=== PATIENT | female | born 1975 | race Two or more races ===

== ENCOUNTER 2024-07-27 13:22 | Emergency (ER) | payer MEDICAID, SELFPAY ==
[2024-07-27 13:23] VITALS: BMI 29.2
--- NOTE | 2024-07-27 13:37 | XR_ITS ---
Examination: PA lateral chest 2 views TECHNIQUE: Upright PA lateral chest 2 views Exam date and time: July 27, 2024 1500 hours Comparison August 29, 2023 INDICATIONS: Coughing fever nausea beginning 2 days ago. FINDINGS: Normal heart size The lungs are clear. The osseous structures are intact IMPRESSION: No active disease
--- NOTE | 2024-07-27 13:38 | PD.EDRME ---
Rapid Medical Screening Exam RME Arrival date/time: 07/27/24 13:22 48-year-old female with no known medical history presents to the emergency room with a chief complaint of abdominal pain, fever, body aches, sore throat x 2 days I have greeted and performed a focused initial assessment of this patient. A comprehensive ED assessment and evaluation of the patient, analysis of all test results, and completion of the medical decision making process will be conducted by additional ED providers. Chief Complaint: Abdominal Pain Vital signs reviewed by provider: Yes
[2024-07-27 13:39] VITALS: BP 118/67; PULSE 120; RESP 20; TEMP 39.5; O2SAT 95
[2024-07-27 14:01] LABS: Lactate (Lactic Acid) 1.9 mMol/L (0.4-2.0)
[2024-07-27 14:06] LABS: Basophils % (Auto) 0 % (0-2.5); Eosinophils % (Auto) 0 % (0-10); Hematocrit 35.5 % (36.0-46.0); Hemoglobin 11.6 g/dL (12.0-16.0); Immature Granulocytes % (Auto) 1 % (0-0); Immature Granulocytes Auto 0.06 Thou/mm3 (0.00-0.00); Lymphocytes # (Auto) 0.8 Thou/mm3 (1.0-4.8); Lymphocytes % (Auto) 8 % (10-50); Mean Corpuscular HGB Conc 32.7 g/dl (31.0-37.0); Mean Corpuscular Hemoglobin 27.1 pg (25.0-35.0); Mean Corpuscular Volume 83 fL (80-100); Monocytes # (Auto) 0.1 Thou/mm3 (0.0-0.8); Monocytes % (Auto) 1 % (0-12); Neutrophils # (Auto) 9.2 Thou/mm3 (1.8-7.7); Neutrophils % (Auto) 90 % (37-80); Nucleated Red Blood Cell % 0 /100 WBC (0); Platelet Count 217 Thou/mm3 (140-440); RDW Standard Deviation 43.2 fL (36.4-46.3); Red Blood Count 4.28 Miln/mm3 (4.00-5.20); White Blood Count 10.2 Thou/mm3 (3.6-11.0)
[2024-07-27 14:47] LABS: Alanine Aminotransferase 18 U/L (10-49); Albumin, Serum 4.4 gm/dL (3.5-5.0); Albumin/Globulin Ratio 1.5 (1.2-2.2); Alkaline Phosphatase 109 U/L (46-116); Anion Gap 8 (7-16); Aspartate Amino Transferase 24 U/L (0-34); BUN/Creatinine Ratio 19 Ratio (12-20); Bilirubin,Total 0.6 mg/dL (0.3-1.2); Blood Urea Nitrogen 15 mg/dL (9-23); Calcium 8.9 mg/dL (8.3-10.6); Calcium (Corrected) 8.9 mg/dL (8.5-10.1); Chloride 105 mMol/L (98-107); Creatinine (Component) 0.8 mg/dL (0.6-1.3); Estimated Creatinine Clearance 81.5 mL/min (>60); Globulin 2.9 gm/dL (2.3-3.5); Glucose 110 mg/dL (74-106); Osmolality,Calculated 279 (275-295); Potassium 4.1 mMol/L (3.4-5.1); Procalcitonin 0.25 ng/ml (0.0-0.49); Sodium 139 mMol/L (136-145); Total Protein 7.3 gm/dL (5.7-8.2); eGFR > 60 See Note
[2024-07-27 14:50] LABS: Collection Type, Urine Clean Catch
[2024-07-27 15:06] LABS: Bacteria,Urine 3+; Bilirubin,Urine Negative (Negative); Blood,Urine 2+ (Negative); Clarity,Urine Turbid (Clear/Hazy); Color,Urine Yellow (Lt Yel-Yel); Glucose, Urine Negative (Negative); Ketones,Urine Negative (Negative); Leukocyte Esterase,Urine Positive (Negative); Nitrite,Urine Negative (Negative); PH,Urine 6.5 (5.0-7.0); Protein,Urine 1+ (Neg - Trace); RBC,Urine 49 /hpf (0-3); Specific Gravity,Urine 1.015 (1.001-1.035); Squamous Epithelial Cell,Urine 3 /hpf (0-5); Urobilinogen,Urine Negative mg/dL (0.0-1.0); WBC,Urine 870 /hpf (0-5)
[2024-07-27 15:10] VITALS: TEMP 39.5
[2024-07-27] MEDS: ACETAMINOPHEN 500 MG TABLET 1000 MG PO (15:10)
[2024-07-27] MEDS: IBUPROFEN TAB 600 MG TABLET PO (15:10)
[2024-07-27 15:11] VITALS: BP 101/64; PULSE 118; RESP 18; TEMP 37.2; O2SAT 96
[2024-07-27] MEDS: SODIUM CHLORIDE 0.9% 1000 ML 1,000 ML 999 ML IV (15:33)
[2024-07-27] MEDS: cefTRIAXone/D5w 1gm IV premix 1 GM/50 ML BAG IV (17:00)
--- NOTE | 2024-07-27 17:06 | EDNOTE_ITS ---
<Statement entered by Supriya Penny MD - 07/27/24 17:40> As co-signing physician, I was present and available for consult prn. I concur with the plan and care as documented by the midlevel provider. ED Female Urogenital RME/HPI General Chief complaint: Abdominal Pain Stated complaint: ABDOMINAL PAIN WITH N/V SINCE LAST NIGHT Time Seen by Provider: 07/27/24 14:02 Source: patient Arrival date/time: 07/27/24 13:22 48-year-old female with no known medical history presents to the emergency room with a chief complaint of abdominal pain, fever, body aches, sore throat x 2 days Mode of arrival: ambulatory Limitations: no limitations RME / HPI RME / HPI Narrative: 07/27/24 13:22 48-year-old female with no known medical history presents to the emergency room with a chief complaint of abdominal pain, fever, body aches, sore throat x 2 days I have greeted and performed a focused initial assessment of this patient. A comprehensive ED assessment and evaluation of the patient, analysis of all test results, and completion of the medical decision making process will be conducted by additional ED providers. Related Data Home Medications ?Medication ?Instructions ?Recorded ?Confirmed sertraline 100 mg tablet 100 mg PO QDAY 11/12/2310/15 Previous Rx's ?Medication ?Instructions ?Recorded acetaminophen 325 mg capsule 650 mg (2 x 325 mg) PO QI D PRN 07/27/24 fever or pain 7 days #30 caps ibuprofen 600 mg tablet 600 mg PO Q8H PRN fever or p ain 07/27/24 #20 tabs nitrofurantoin 100 mg PO Q12H 5 days #10 ca ps 07/27/24 monohydrate/macrocrystals 100 mg capsule (Macrobid) Allergies Allergy/AdvReac Type Severity Reaction Status Date / Time No Known Allergies Allergy Verified 11/12/23 11:17 Review of Systems Review of Systems Systems Reviewed: All systems reviewed, normal except as documented Constitutional Constitutional: Reports system reviewed and no additional complaints, except as documented, Denies fatigue, Reports fever(s), Reports headache(s) and Reports weakness Eyes Eyes: Reports system reviewed and no additional complaints, except as documented, Denies blurry vision and Denies change in vision ENT Ears, Nose, Mouth, and Throat: Reports system reviewed and no additional complaints, except as documented, Denies otalgia, Reports headache(s), Denies nasal congestion, Denies throat swelling and Denies vertigo Cardiovascular Cardiovascular: Reports system reviewed and no additional complaints, except as documented, Denies chest pain, Reports dyspnea and Denies dyspnea on exertion Respiratory Respiratory: Reports system reviewed and no additional complaints, except as documented, Reports chest congestion, Reports cough, Reports dyspnea, Denies dyspnea on exertion and Denies wheezing Gastrointestinal Gastrointestinal: Reports system reviewed and no additional complaints, except as documented, Denies abdominal pain, Denies cramping, Denies nausea and Denies vomiting Genitourinary Genitourinary: Reports system reviewed and no additional complaints, except as documented and Reports dysuria Musculoskeletal Musculoskeletal: Reports system reviewed and no additional complaints, except as documented and Denies back pain Integumentary/Breasts Skin/Breast: Reports system reviewed and no additional complaints, except as documented and Denies wounds Neurologic Neurologic: Reports system reviewed and no additional complaints, except as documented, Denies confusion, Reports headache(s), Denies lack of coordination, Denies vertigo and Reports weakness Psychiatric Psychiatric: Reports system reviewed and no additional complaints, except as documented, Denies anxiety, Denies confusion, Denies depression, Denies paranoia, Denies suicidal ideation and Denies tactile hallucinations Endocrine Endocrine: Reports system reviewed and no additional complaints, except as documented and Denies fatigue Hematologic/Lymphatic Hematologic/Lymphatic: Reports system reviewed and no additional complaints, except as documented and Denies lymphadenopathy Allergic/Immunologic Allergic/Immunologic: Reports system reviewed and no additional complaints, except as documented, Denies throat swelling, Denies urticaria and Denies wheezing Past Medical History Past Medical History NEUROLOGIC: Negative Seizures CARDIAC: Negative Congestive Heart Failure RESPIRATORY: Negative Chronic Obstructive Pulmonary Disease (COPD) GASTROINTESTINAL: Positive Gastrointestinal Disorders and Gastroesophageal Reflux Disease GENITOURINARY: Negative Renal Disease ENDOCRINE: Positive Hypothyroidism (no longer takes meds per pt); Negative Diabetes Mellitus Type 1 or Diabetes Mellitus Type 2 OTHER HISTORY: Negative Blood Transfusions, Blood Transfusion Reaction or Anesthesia Reactions (no surgeries in past) Family History FAMILY HISTORY: Positive Family Cardiac Disorders Social History SMOKING STATUS: Never smoker SUBSTANCE USE: does not use ED Exam General Limitations: Present no limitations General appearance: Present alert and in no apparent distress Head Head exam: Present atraumatic Eye Eye exam: Present normal appearance, PERRL and EOMI ENT ENT exam: Present normal exam, normal oropharynx and mucous membranes moist Neck Neck exam: Present normal inspection, full ROM and trachea midline Chest Chest inspection: Present normal inspection and symmetric chest wall rise Respiratory Respiratory exam: Present normal lung sounds bilaterally; Absent respiratory distress, wheezes, stridor, accessory muscle use or prolonged expiratory phase Cardiovascular Cardiovascular exam: Present regular rate, normal rhythm and normal heart sounds; Absent bradycardia, tachycardia or irregular rhythm Abdominal Exam Abdominal exam: Present soft and normal bowel sounds; Absent tenderness Extremities Exam Extremities exam: Present normal inspection and full ROM Back Exam Back exam: Present normal inspection and full ROM Neurological Exam Neurological exam: Present alert, oriented X3 and CN II-XII intact Psychiatric Psychiatric exam: Present normal affect and normal mood Skin Skin exam: Present warm, dry, intact and normal color Course Quality Measures none Orders Category Date Time Status Bedside COVID-19 Antigen Test NOW Care 07/27/24 13:37 Active Bedside Influenza A&B Antigen Test NOW Care 07/27/24 13:37 Completed XR chest 2V Stat Exams 07/27/24 13:37 Completed Blood Culture (Lab) Stat Lab 07/27/24 13:45 Received CBC Stat Lab 07/27/24 13:50 Completed CMP [Comprehensive Metabolic Panel] Stat Lab 07/27/24 13:50 Completed Lactate (Lactic Acid) Stat Lab 07/27/24 13:50 Completed Procalcitonin Stat Lab 07/27/24 13:50 Completed Strep A Rapid Stat Lab 07/27/24 13:39 Ordered UA [Urinalysis] Stat Lab 07/27/24 14:31 Completed Urine Culture Stat Lab 07/27/24 14:31 Received Acetaminophen Tab [Tylenol ES Tab] Med 07/27/24 13:37 Discontinued 1,000 mg PO X1 ONE Ibuprofen Tab [Motrin Tab] Med 07/27/24 13:37 Discontinued 600 mg PO X1 ONE Sodium Chloride 0.9% 1000 ml [Ns] 1,000 ml Med 07/27/24 14:03 Discontinued IV 999 mls/hr cefTRIAXone/D5w 1gm IV premix [Rocephin/D5w 1gm IV Med 07/27/24 15:48 Discontinued premix] 1 gm in 50 ml IV X1 Vital Signs Vital signs: Vital Signs Temperature 103.1 F H 07/27/24 13:39 Pulse Rate 120 H 07/27/24 13:39 Respiratory Rate 20 07/27/24 13:39 Blood Pressure 118/67 07/27/24 13:39 Pulse Oximetry (%) 95 07/27/24 13:39 Oxygen Delivery Method Room Air 07/27/24 13:39 O2 saturation 95% within normal limits Urogenital - Female MDM Narrative MDM Narrative:: 48-year-old female with no known medical history presents to the emergency room with a chief complaint of abdominal pain, fever, body aches, sore throat x 2 days Initially patient was febrile at 103.1, tachycardic and tachypneic. His sepsis alert was called. Physical examination showed clear bilateral lung sounds. There is no accessory muscle use and patient's O2 saturation was 96% on room air. Patient was given antipyretics and reevaluated in 1 hour with significant improvement to her symptoms. Lactic acid was 1.9. CBC CMP were within normal limits. Urinalysis showed a urinary tract infection. Antibiotics are sent to the patient's pharmacy. During reevaluation patient was no longer febrile and states that she felt a lot better. The patient was given 1 L of fluids and 1 g of Rocephin IV. Patient was discharged and educated to follow-up with primary care provider in the next 24 to 48 hours and return to the emergency room for any evidence of worsening signs or symptoms Patient data External records reviewed:: [facility] previous records Clinical information provided by:: patient Social determinants that could affect healthcare access:: none Patient has the following chronic illnesses:: No chronic illness How is presenting disease/condition affected by chronic disease/condition?: no chronic disease Evaluation data The following diagnostics were reviewed and interpreted by me:: lab results and radiology exam(s) Lab and/or radiology exams considered but not ordered:: Labs and radiology exams considered and ordered Interpretation Summary: N/A Medications / Prescriptions Medications or Prescriptions considered but not ordered:: Medication given Medication administrations:: Medication Administration History Discontinued Medications Acetaminophen (Acetaminophen 500 Mg Tablet) 1,000 mg PO X1 ONE Stop: 07/27/24 13:38 Last Admin: 07/27/24 15:10 Dose: 1,000 mg Documented By: MIKHAIL Sodium Chloride (Ns) 1,000 mls @ 999 mls/hr IV .Q1H1M ONE Stop: 07/27/24 15:03 Last Admin: 07/27/24 15:33 Dose: 999 mls/hr Documented By: MIKHAIL Ceftriaxone Sodium/Dextrose (Rocephin/D5w 1gm Iv Premix) 1 gm in 50 mls @ 100 mls/hr IV X1 ONE Stop: 07/27/24 16:17 Last Admin: 07/27/24 17:00 Dose: 100 mls/hr Documented By: TOMASZ Ibuprofen (Ibuprofen Tab 600 Mg Tablet) 600 mg PO X1 ONE Stop: 07/27/24 13:38 Last Admin: 07/27/24 15:10 Dose: 600 mg Documented By: MIKHAIL Medication given Consultations Consultation(s) initiated? (list below): No Diagnosis Urogenital Female Differential Diagnosis: urinary tract infection, cystitis and other (Influenza B) Most likely diagnosis given after review of the tests above:: Influenza B/urinary tract infection Admission Indicated Admission indicated?: not indicated Admission Request Was there a request for admission?: No Disposition Plan Disposition Plan: Discharge Discharge Attestation Discharge Attestation: The patient and all family members were given an opportunity to ask questions and understood the discharge instructions. Discharge instructions specifically effects, indications for sooner follow up or return to the emergency department, and the expected course of current diagnosis. Patient condition: Stable Discharge Plan Plan Patient Disposition: HOME (Self Care) Disposition Comment: Stable Prescriptions/Referrals Prescriptions/Med Rec: New ibuprofen 600 mg tablet 600 mg PO Q8H PRN (Reason: fever or pain) Qty: 20 0RF nitrofurantoin monohyd/m-cryst [Macrobid] 100 mg capsule 100 mg PO Q12H 5 Days Qty: 10 0RF Rx Instructions: must administer with a meal/food acetaminophen 325 mg capsule 650 mg PO QID PRN (Reason: fever or pain) 7 Days Qty: 30 0RF No Action sertraline 100 mg tablet 100 mg PO QDAY Referrals: Brittanie Gipson MD [Primary Care Provider] - In 1 week Problem List Clinical Impression: Urinary tract infection, Influenza B Patient/Caregiver Discharge Instructions Education Materials: The Flu (Influenza), ED Influenza (Adult), ED CYSTITIS Female Adult Additional Instructions: Por favor, consulte con hickman m?dico de cabecera en las pr?ximas 24 a 48 horas. Asa positivo en la prueba de influenza B. Hickman muestra de orina tambi?n mostr? johann infecci?n del tracto urinario. Se le enviar?n antibi?ticos a hickman farmacia; rec?jalos y t?melos seg?n lo indicado. Contin?e tomando Tylenol e ibuprofeno para controlar la fiebre. Aumente hickman consumo de l?quidos por v?a oral. Si observa cualquier signo de empeoramiento de los signos o s?ntomas, acuda a urgencias de inmediato. Print Language: Greenlandic Stand Alone Forms: [employer] Award Info., Work/School Release, Patient Portal Info Letter PA/BUILD AUTOMATION ENGINEER Supervising Physician PA/BUILD AUTOMATION ENGINEER Supervising Physician: Dr. PENNY
[2024-07-27 17:40] VITALS: BP 101/64; PULSE 91
== END 2024-07-27 17:46 | disposition home or self-care (01) ==
PROVIDERS: Nurse Practitioner Family; Emergency Provider Emergency Medicine; PCP Obstetrics & Gynecology
DX: N39.0 Urinary tract infection, site not specified (principal); J10.1 Influenza due to other identified influenza virus with other respiratory manifestations
CPT/HCPCS: 36415; 71046; 80053; 81001; 83605; 84145; 85025; 87040; 87077; 87086; 87186; 87400; 87651; 87811; 99284; J0696; J7030; A9270

== ENCOUNTER → 2025-02-18 | Outpatient (CLI) | payer MEDICAID, SELFPAY ==
--- NOTE | 2025-02-18 09:30 | XR_ITS ---
Examination: Screening digital mammography, bilateral Computer aided detection 3-D breast Tomosynthesis, bilateral Date and time of exam: 02/18/2025, 9:04 a.m. Comparisons: April 2015 through August 2016 Indications: Screening, patient reports palpable abnormality right breast and questionnaire Technique: Nonmagnified MLO, CC views of the breasts to been obtained, reconstructed from 3-D Tomosynthesis images. R2 computer aided detection program utilized for evaluation of suspicious masses and/or abnormal calcifications. 3-D Tomosynthesis images obtained. Technologist: Findings: The breasts are heterogeneously dense, which may obscure small masses. No evidence of abnormal masses or suspicious calcifications. Stable right post biopsy marker clip. Impression: No mammographic abnormality seen on screening exam. Recommend spot compression views and ultrasound evaluation of the palpable abnormality in the right breast. BI-RADS category 0: Incomplete assassment; need additional imaging evaluation
== END | disposition home or self-care (01) ==
PROVIDERS: Referring Provider Family Medicine; Visit Provider Family Medicine
DX: Z12.31 Encounter for screening mammogram for malignant neoplasm of breast (principal); R92.8 Other abnormal and inconclusive findings on diagnostic imaging of breast
CPT/HCPCS: 77063; 77067

== ENCOUNTER 2025-03-24 06:30 | Day surgery (SDC) | payer MEDICAID, SELFPAY ==
[2025-03-22 15:46] LABS: HCG Qualitative,Urine Negative
[2025-03-23 13:23] VITALS: BMI 29.7
[2025-03-24] VITALS (9 sets, daily range): BP systolic 111–142; BP diastolic 52–82; PULSE 65–106; RESP 12–22; TEMP 36.3–36.4; O2SAT 99–100; BMI 30.2
[2025-03-24] MEDS: fentaNYL CIT INJ 50 mCg/ML AMP 2ML (ASD USE ONLY) IVP (07:42)
[2025-03-24] MEDS: SODIUM CHLORIDE 0.9% 500 ML 500 ML 125 ML IV (07:42)
[2025-03-24] MEDS: MIDAZOLAM INJ 1 MG/ML VIAL 2 ML (ASD USE ONLY) 2 MG IVP (07:47)
== END 2025-03-24 08:34 | disposition home or self-care (01) ==
PROVIDERS: PCP Specialist; Referring Provider Surgery; Visit Provider Surgery
PROC: 0DBE8ZX Excision of Large Intestine, Via Natural or Artificial Opening Endoscopic, Diagnostic (ICD-10-PCS; CPT 45380; principal; 2025-03-24 07:30)
DX: Z12.11 Encounter for screening for malignant neoplasm of colon (principal); K64.1 Second degree hemorrhoids; K64.4 Residual hemorrhoidal skin tags; M19.90 Unspecified osteoarthritis, unspecified site; F32.A Depression, unspecified; E78.00 Pure hypercholesterolemia, unspecified
CPT/HCPCS: 45378; 81025; A4649; J1200; J2250; J3010; J7999